=== PATIENT | female | born 1990 | race Caucasian/White ===

== ENCOUNTER 2018-08-31 17:36 | Emergency (ER) | payer OTHER ==
[2018-08-31 18:01] VITALS: BP 138/93; PULSE 95; TEMP 97.7; BMI 17.8
[2018-08-31] MEDS ORDERED: IBUPROFEN 600 MG TABLET (FP) PO ONE ×2 (18:54→19:01)
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
== END 2018-08-31 22:19 | disposition home or self-care (01) ==
LOC: JER 17:36
DX: M25.561 Pain in right knee (principal); V03.90XA Pedestrian on foot injured in collision with car, pick-up truck or van, unspecified whether traffic or nontraffic accident, initial encounter; Y93.89 Activity, other specified; Y92.410 Unspecified street and highway as the place of occurrence of the external cause; F32.9 Major depressive disorder, single episode, unspecified
CPT/HCPCS: 73030-TC-LT-FY; 73562-TC-RT-FY; 84703; 99282-25